=== PATIENT | female | born 1985 | race Asian ===

== ENCOUNTER 2023-11-30 19:23 | Emergency (ER) | payer OTHER ==
[~2023-11-30] VITALS: Ht 154.9 cm; Wt 106.6 kg
[2023-11-30 21:03] VITALS: BP 145/85; TEMP 98.1; O2SAT 98
== END 2023-11-30 21:03 ==
LOC: ER 19:35
DX: Z11.52 Encounter for screening for COVID-19 (principal); E11.9 Type 2 diabetes mellitus without complications; Z20.822 Contact with and (suspected) exposure to COVID-19